=== PATIENT | male | born 1980 | race Caucasian/White ===

== ENCOUNTER 2019-06-16 22:15 | Emergency (ER) | payer SELFPAY ==
[~2019-06-16] VITALS: Ht 180.3 cm; Wt 117.1 kg
[2019-06-16 22:55] VITALS: BP 133/67
--- NOTE | 2019-06-16 22:58 | NUR ---
TO BED # 02 AMBULATORY WITH KIDS
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
[2019-06-16] MEDS ORDERED: IBUPROFEN 800 MG TAB PO ONE (23:15)
--- NOTE | 2019-06-16 23:25 | NUR ---
PT RETURNED FROM XRAY.
[2019-06-17 00:08] VITALS: BP 125/79
--- NOTE | 2019-06-17 00:08 | NUR ---
Patient discharged with v/s stable. Written and verbal after care instructions given and explained. Patient alert, oriented and verbalized understanding of instructions. Ambulatory with steady gait. All questions addressed prior to discharge. ID band removed. Patient advised to follow up with PMD. Rx of FLEXERIL AND MOTRIN given. Patient educated on indication of medication including possible reaction and side effects. Opportunity to ask questions provided and answered.
== END 2019-06-17 00:08 | disposition home or self-care (01) ==
LOC: MED 22:15
DX: S29.012A Strain of muscle and tendon of back wall of thorax, initial encounter (principal); S40.011A Contusion of right shoulder, initial encounter; F17.200 Nicotine dependence, unspecified, uncomplicated; V89.2XXA Person injured in unspecified motor-vehicle accident, traffic, initial encounter; Y93.89 Activity, other specified; Y92.411 Interstate highway as the place of occurrence of the external cause; Y99.8 Other external cause status
CPT/HCPCS: 72072; 73030; 99283

== ENCOUNTER 2021-05-08 20:20 | Emergency (ER) | payer OTHER ==
[~2021-05-08] VITALS: Ht 180.3 cm; Wt 117.9 kg
[2021-05-08 20:27] VITALS: BP 133/91
--- NOTE | 2021-05-08 20:30 | NUR ---
TO LOBBY A/W BED AMBULATORY
--- NOTE | 2021-05-08 21:10 | NUR ---
CALLED FOR BED -- NO ANSWER.
--- NOTE | 2021-05-08 21:15 | NUR ---
CALLED FOR BED -- NO ANSWER.
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
== END 2021-05-08 21:52 | disposition left against medical advice (07) ==
LOC: MED 20:20
DX: R42 Dizziness and giddiness (principal); Z53.21 Procedure and treatment not carried out due to patient leaving prior to being seen by health care provider

== ENCOUNTER 2023-06-29 14:29 | Emergency (ER) | payer OTHER ==
[~2023-06-29] VITALS: Ht 180.3 cm; Wt 98.4 kg
[~2023-06-29 14:29] MED LIST: DAPA10TA PO; METF-1253 PO; TOR10 PO
[2023-06-29 14:40] VITALS: BP 136/77; PULSE 88; RESP 18; TEMP 96.6; O2SAT 100
[2023-06-29] MEDS ORDERED: IBUPROFEN 600 MG TAB PO ONE (15:05)
[2023-06-29] MEDS ORDERED: IBUP-2213 PO (15:42)
== END 2023-06-29 15:54 | disposition home or self-care (01) ==
LOC: MED 14:29
DX: S39.012A Strain of muscle, fascia and tendon of lower back, initial encounter (principal); I10 Essential (primary) hypertension; Z79.899 Other long term (current) drug therapy; X58.XXXA Exposure to other specified factors, initial encounter; Y93.89 Activity, other specified; Y92.89 Other specified places as the place of occurrence of the external cause; Y99.8 Other external cause status
CPT/HCPCS: 71045; 81002; 99283; Q0092

== ENCOUNTER 2023-11-03 00:51 | Emergency (ER) | payer OTHER ==
[~2023-11-03] VITALS: Ht 180.3 cm; Wt 104.3 kg
[~2023-11-03 00:51] MED LIST changes: +IBUP-2213 PO
[2023-11-03 00:52] VITALS: BP 134/79; PULSE 91; RESP 16; TEMP 98.1; O2SAT 100
[2023-11-03] MEDS ORDERED: NACL 0.9% 3,000 ML IV ONE (00:55)
[2023-11-03] MEDS ORDERED: INSULIN REGULAR, HUMAN 100 UNIT/ML VIAL IV ONE (00:55)
[2023-11-03] MEDS ORDERED: KETOROLAC 30 MG/ML VIAL IVP ONE (01:25)
[2023-11-03 02:15] VITALS: BP 134/79; PULSE 91; RESP 16; TEMP 98.1; O2SAT 100
== END 2023-11-03 02:15 ==
LOC: MED 00:51
DX: Z02.89 Encounter for other administrative examinations (principal); E11.65 Type 2 diabetes mellitus with hyperglycemia; F12.90 Cannabis use, unspecified, uncomplicated; Z79.899 Other long term (current) drug therapy; Z79.1 Long term (current) use of non-steroidal anti-inflammatories (NSAID)
CPT/HCPCS: 96361; 96374; 96375; 99284; J1815; J1885; J7030